=== PATIENT | female | born 1985 | race African-American/Black ===

== ENCOUNTER 2018-07-20 09:33 | Emergency (ER) | payer OTHER ==
[~2018-07-20] VITALS: Ht 171.4 cm; Wt 102.1 kg
[2018-07-20] MEDS ORDERED: LORazepam Inj 2mg/ml 1ml IV ONE (09:45)
[2018-07-20 10:10] LABS: BASOPHILS % (AUTO) 3.9 % (0.0-2.0); EOSINOPHILS % (AUTO) 2.7 % (0.0-3.0); HEMATOCRIT 38.3 % (37.0-47.0); HEMOGLOBIN 12.6 G/DL (12.0-16.0); MEAN CORPUSCULAR VOLUME 89 FL (80-99); MONOCYTES % (AUTO) 11.6 % (1.0-10.0); NEUTROPHILS % (AUTO) 37.8 % (45.0-75.0); PLATELET COUNT 388 K/UL (150-450); RED BLOOD COUNT 4.32 M/UL (4.20-5.40); RED CELL DISTRIBUTION WIDTH 14.4 % (11.6-14.8); WHITE BLOOD COUNT 5.3 K/UL (4.8-10.8)
[2018-07-20 10:29] LABS: INR 1.1 (0.9-1.1)
[2018-07-20 10:30] VITALS: BP 134/76
[2018-07-20 10:31] LABS: ANION GAP 12 mmol/L (5-15); BLOOD UREA NITROGEN 9 mg/dL (7-18); CALCIUM 9.5 MG/DL (8.5-10.1); CARBON DIOXIDE 23 MMOL/L (21-32); CHLORIDE 103 MMOL/L (98-107); CREATININE 0.9 MG/DL (0.55-1.30); SODIUM 137 MMOL/L (136-145)
[2018-07-20 10:32] LABS: ALANINE AMINOTRANSFERASE 31 U/L (12-78); ALBUMIN 3.2 G/DL (3.4-5.0); ALBUMIN/GLOBULIN RATIO 0.7 (1.0-2.7); ALKALINE PHOSPHATASE 106 U/L (46-116); ASPARTATE AMINO TRANSFERASE 22 U/L (15-37); BILIRUBIN,TOTAL 0.6 MG/DL (0.2-1.0); CREATINE KINASE 119 U/L (26-308)
--- NOTE | 2018-07-20 10:36 | Emergency Room Report ---
History of Present Illness General Chief Complaint: Palpitations Source: Patient Present Illness HPI Patient presents with chest pressure, dyspnea and palpitations began earlier today. She is a business development consultant for elderly transport and was driving when she started feeling short of breath. Then she started having palpitations and felt that she was unable to continue driving because of how she felt. She felt some dizziness at that time. Yesterday she had an episode of rapid heartbeat while sitting at rest. Night before she drank alcohol heavily. The patient states she's hyperthyroid and does not take medications at this time. She does have a multinodular goiter. Patient denies nausea vomiting diaphoresis. She felt somewhat dizzy last night when she was having the palpitations. No fevers, chills, dysuria, rashes, headache, edema, NVD. Allergies: Coded Allergies: No Known Allergies (Unverified , 07/20/18) Patient History Past Medical History: see triage record Social History: Reports: alcohol use; Denies: smoking Social History Narrative business development consultant Last Menstrual Period: 06/19/18 Reviewed Nursing Documentation: PMH: Agreed; PSxH: Agreed Nursing Documentation-PMH Past Medical History: No History, Except For Review of Systems All Other Systems: negative except mentioned in HPI Physical Exam Vital Signs Date Time Temp Pulse Resp B/P (MAP) Pulse Ox O2 Delivery O2 Flow Rate FiO2 07/20/18 09:29 98.4 100 16 160/98 98 Room Air Sp02 EP Interpretation: reviewed, normal General Appearance: well appearing, no apparent distress, GCS 15 Head: normocephalic Eyes: bilateral eye normal inspection, bilateral eye PERRL ENT: moist mucus membranes Neck: supple, thyromegaly - non tender Respiratory: lungs clear, normal breath sounds Cardiovascular #1: tachycardia Cardiovascular #2: 2+ radial (R) Gastrointestinal: normal inspection, normal bowel sounds, non tender, no mass, non-distended, overweight Genitourinary: no CVA tenderness Musculoskeletal: back normal, gait/station normal, normal range of motion, no calf tenderness Neurologic: alert, oriented x3, grossly normal Psychiatric: anxious Skin: normal inspection, warm/dry Medical Decision Making Diagnostic Impression: Primary Impression: Hyperthyroidism ER Course Patient presents with palpitations and dyspnea and anxiety. Differential includes anxiety, hyperventilation, acute myocardial infarction, pulmonary embolus, hyperthyroidism amongst others. Evaluation will be with EKG, chest x- ray and labs including d-dimer. The patient will be treated with IV hydration and Ativan. EKG was normal sinus rhythm and sinus arrhythmia rate 78 normal intervals. Labs with normal CBC, CMP, UA. D dimer near normal. Thyroid function shows hyperthyroidism. Propranolol given. Discussed need for thyroid control. Not in thyroid storm. Rx for propranolol and PTU. Patient stable for outpatient observation and treatment. Laboratory Tests Test 07/20/18 09:25 07/20/18 09:55 07/20/18 10:30 Thyroid Stimulating Hormone (TSH) < 0.010 uiU/mL (0.358-3.740) Free Thyroxine 1.58 NG/DL (0.76-1.46) H Free Triiodothyronine 4.7 pg/mL (2.3-4.2) H White Blood Count 5.3 K/UL (4.8-10.8) Red Blood Count 4.32 M/UL (4.20-5.40) Hemoglobin 12.6 G/DL (12.0-16.0) Hematocrit 38.3 % (37.0-47.0) Mean Corpuscular Volume 89 FL (80-99) Mean Corpuscular Hemoglobin 29.3 PG (27.0-31.0) Mean Corpuscular Hemoglobin Concent 33.0 G/DL (32.0-36.0) Red Cell Distribution Width 14.4 % (11.6-14.8) Platelet Count 388 K/UL (150-450) Mean Platelet Volume 5.1 FL (6.5-10.1) L Neutrophils (%) (Auto) 37.8 % (45.0-75.0) L Lymphocytes (%) (Auto) 44.0 % (20.0-45.0) Monocytes (%) (Auto) 11.6 % (1.0-10.0) H Eosinophils (%) (Auto) 2.7 % (0.0-3.0) Basophils (%) (Auto) 3.9 % (0.0-2.0) H Prothrombin Time 11.2 SEC (9.30-11.50) Prothrombin Time INR 1.1 (0.9-1.1) PTT 26 SEC (23-33) D-Dimer 0.51 mg/L FEU (0.00-0.49) H Sodium Level 137 MMOL/L (136-145) Potassium Level 3.0 MMOL/L (3.5-5.1) L Chloride Level 103 MMOL/L (98-107) Carbon Dioxide Level 23 MMOL/L (21-32) Anion Gap 12 mmol/L (5-15) Blood Urea Nitrogen 9 mg/dL (7-18) Creatinine 0.9 MG/DL (0.55-1.30) Estimate Glomerular Filtration Rate > 60 mL/min (>60) Glucose Level 90 MG/DL (74-106) Calcium Level 9.5 MG/DL (8.5-10.1) Total Bilirubin 0.6 MG/DL (0.2-1.0) Aspartate Amino Transferase (AST) 22 U/L (15-37) Alanine Aminotransferase (ALT) 31 U/L (12-78) Alkaline Phosphatase 106 U/L (46-116) Total Creatine Kinase 119 U/L (26-308) Troponin I 0.000 ng/mL (0.000-0.056) Pro-B-Type Natriuretic Peptide 53 pg/mL (0-125) Total Protein 8.0 G/DL (6.4-8.2) Albumin 3.2 G/DL (3.4-5.0) L Globulin 4.8 g/dL Albumin/Globulin Ratio 0.7 (1.0-2.7) L Urine Color Yellow Urine Appearance Clear Urine pH 6 (4.5-8.0) Urine Specific [place] 1.025 (1.005-1.035) Urine Protein Negative (NEGATIVE) Urine Glucose (UA) Negative (NEGATIVE) Urine Ketones Negative (NEGATIVE) Urine Blood Negative (NEGATIVE) Urine Nitrite Negative (NEGATIVE) Urine Bilirubin Negative (NEGATIVE) Urine Urobilinogen 1 MG/DL (0.0-1.0) H Urine Leukocyte Esterase 2+ (NEGATIVE) H Urine RBC 0-2 /HPF (0 - 2) Urine WBC 2-4 /HPF (0 - 2) Urine Squamous Epithelial Cells Few /LPF (NONE/OCC) Urine Bacteria Occasional /HPF (NONE) Urine HCG, Qualitative Negative (NEGATIVE) EKG Diagnostic Results Rate: normal Rhythm: NSR ST Segments: no acute changes Rhythm Strip Diag. Results EP Interpretation: yes Rhythm: NSR, no PVC's, no ectopy Chest X-Ray Diagnostic Results Chest X-Ray Diagnostic Results : Chest X-Ray Ordered: Yes # of Views/Limited/Complete: 1 View Indication: Shortness of Breath EP Interpretation: Yes Interpretation: no consolidation, no effusion, no pneumothorax Impression: No acute disease Electronically Signed by: Dao Christian MD Last Vital Signs Date Time Temp Pulse Resp B/P (MAP) Pulse Ox O2 Delivery O2 Flow Rate FiO2 07/20/18 13:20 98.0 78 16 127/64 98 Room Air Status: improved Disposition: HOME, SELF-CARE Condition: Improved Scripts Propranolol Hcl* (INDERAL*) 20 Mg Tablet 20 MG ORAL THREE TIMES A DAY, #90 TAB 0 Refills Prov: Dao Christian MD 07/20/18 Propylthiouracil (PROPYLTHIOURACIL) 50 Mg Tablet 100 MG PO TID, #60 TAB 1 Refill Prov: Dao Christian MD 07/20/18 Dao Christian MD Jul 20, 2018 10:35
--- NOTE | 2018-07-20 10:54 | Diagnostic Imaging Report ---
Indication: Chest pain Comparison: None A single view chest radiograph was obtained. Findings: Cardiomediastinal appearance is within normal limits for age and low lung volumes. The lungs are clear although not evaluated well due to low lung volumes. Pulmonary vascularity is appropriate. The diaphragmatic contour is smooth and costophrenic angles are sharp. No pleural effusions are identified. The bones are unremarkable. Impression: No acute findings
[2018-07-20 10:55] LABS: APPEARANCE,URINE CLEAR; BILIRUBIN, URINE NEGATIVE (NEGATIVE); GLUCOSE, URINE (UA) NEGATIVE (NEGATIVE); KETONES,URINE NEGATIVE (NEGATIVE); LEUKOCYTE ESTERASE ,URINE 2+ (NEGATIVE); NITRITE,URINE NEGATIVE (NEGATIVE); PH,URINE 6 (4.5-8.0); PROTEIN,URINE NEGATIVE (NEGATIVE); UROBILINOGEN,URINE 1 MG/DL (0.0-1.0)
[2018-07-20 11:15] LABS: COLOR,URINE YELLOW
[2018-07-20 11:54] VITALS: BP 134/92
[2018-07-20 12:04] VITALS: BP 147/57
[2018-07-20] MEDS ORDERED: Propranolol 40mg tab ORAL ONE (12:30)
[2018-07-20] MEDS ORDERED: PROPRANOLOL HCL20 MG ORAL (13:02)
[2018-07-20] MEDS ORDERED: PROPYLTHIOURACI50 M2 PO (13:02)
[2018-07-20 13:20] VITALS: BP 127/64
--- NOTE | 2018-07-21 16:42 | Cardiology Report ---
APPROVED REPORT EKG Measurement Heart [id number] Normal sinus rhythm with sinus arrhythmia Normal ECG
== END 2018-07-20 13:20 | disposition home or self-care (01) ==
LOC: EDBD 09:33 → EMR 13:10
DX: E05.90 Thyrotoxicosis, unspecified without thyrotoxic crisis or storm (principal)
CPT/HCPCS: 36415; 71045; 80053; 81003; 81025; 82550; 83880; 84439; 84443; 84481; 84484; 85025; 85379; 85610; 85730; 93005; 96361; 96374; 99284